=== PATIENT | male | born 1950 | race Caucasian/White ===

== ENCOUNTER → 2016-08-14 | Outpatient (CLI) | payer OTHER ==
--- NOTE | 2016-08-14 13:31 | DX ---
Left elbow, 3 views. History: Elbow pain and swelling. Comparison: February 2014. Findings: The soft tissue swelling previously seen at the olecranon process has improved. Soft tissue calcification is seen dorsal to the proximal ulna, which could be from prior trauma, inflammation, o r calcific deposition disease. No evidence for osseous erosion. An enthesophyte is seen at the tricep s insertion of the olecranon process. No significant joint narrowing or periarticular erosion. No cameron dence for acute fracture or dislocation. No evidence for elbow joint effusion. Impression: Improvement of the olecranon bursitis seen previously. There is remaining soft tissue hayden cification posterior to the proximal ulna, which could be from prior trauma, inflammation, or calcifi c tendinitis.
== END ==
LOC: FIMAGING 12:35
PROVIDERS: ATTEND Family Medicine
DX: M77.8 Other enthesopathies, not elsewhere classified (principal); M25.522 Pain in left elbow; E11.40 Type 2 diabetes mellitus with diabetic neuropathy, unspecified; I10 Essential (primary) hypertension; N28.9 Disorder of kidney and ureter, unspecified